=== PATIENT | male | born 1960 | race Caucasian/White ===

== ENCOUNTER 2016-06-09 20:30 | Inpatient (IN) | payer OTHER ==
[~2016-06-09] VITALS: Ht 182.9 cm; Wt 130.7 kg
[~2016-06-09 20:30] MED LIST: ASPI81TA2 PO; ATOR10TA84 PO; GABA-531 PO; GEMF600T3 PO; INSLAN SQ; INSU100C3 SQ
[2016-06-09] MEDS ORDERED: IPRATROPIUM BROMIDE 0.5 MG/2.5 ML NEB SOLUTION NEB ONE (20:45)
[2016-06-09] MEDS ORDERED: ALBUTEROL SULFATE 5 MG/ML 20 ML NEB SOLN [BULK] NEB ONE (20:45)
[2016-06-09 20:50] LABS: GLUCOSE,POINT OF CARE 224 MG/DL (70-110)
[2016-06-09] MEDS ORDERED: METF500T4 PO (21:14)
[2016-06-09] MEDS ORDERED: LISI-661 PO (21:14)
[2016-06-09 21:20] LABS: BASOPHILS # (AUTO) 0.02 K/uL (0.00-0.20); BASOPHILS % (AUTO) 0.4 % (0.0-2.0); EOSINOPHILS # (AUTO) 0.14 K/uL (0.00-0.70); EOSINOPHILS % (AUTO) 2.25 % (1.0-6.0); HEMATOCRIT 37.4 % (41-53); HEMOGLOBIN 12.2 g/dL (13.5-17.5); LYMPHOCYTES # (AUTO) 1.4 K/uL (1.0-4.8); LYMPHOCYTES % (AUTO) 23.9 % (22.0-44.0); MEAN CORPUSCULAR HEMOGLOBIN 29.1 pg (26.0-34.0); MEAN CORPUSCULAR HGB CONC 32.6 G/dL (31.0-37.0); MEAN CORPUSCULAR VOLUME 89 fL (80-100); MONOCYTES # (AUTO) 0.5 K/uL (0.1-1.0); MONOCYTES % (AUTO) 7.5 % (2.0-9.0); NEUTROPHILS % (AUTO) 65.9 % (40.0-70.0); PLATELET COUNT (AUTO) 181 K/uL (150-450); RED CELL DISTRIBUTION WIDTH 15.8 % (11.5-14.5)
[2016-06-09 21:31] LABS: ANION GAP 6 mmol/L (8-16); CALCIUM, TOTAL 8.4 mg/dL (8.8-10.5); CARBON DIOXIDE 30 mmol/L (22-29); CHLORIDE 101 mmol/L (98-107); CREATININE 1.12 mg/dL (0.60-1.30); GLOMERULAR FILTR. RATE CALC > 60 mL/min (>60); POTASSIUM 4.1 mmol/L (3.5-5.1); SODIUM SERUM 137 mmol/L (136-145); UREA NITROGEN, BLOOD 14 mg/dL (7-18)
[2016-06-09 21:38] LABS: ALANINE AMINOTRANSFERASE 45 U/L (12-78); ALBUMIN 2.6 g/dL (3.4-5.0); ASPARTATE AMINOTRANSFERASE 23 U/L (15-37); BILIRUBIN,TOTAL 1.1 mg/dL (0.1-1.0); TOTAL PROTEIN, SERUM 6.5 g/dL (6.4-8.2)
[2016-06-09 21:50] LABS: B-TYPE NATRIURETIC PEPTIDE 202 pg/mL (0-100)
[2016-06-09 22:14] LABS: INFLUENZA TYPE B NEGATIVE FOR TYPE B (NEGATIVE)
[2016-06-09] MEDS ORDERED: NITROGLYCERIN 2% (1 GM=INCH) PACKET TP ONE (22:15)
[2016-06-09] MEDS ORDERED: BISACODYL 10 MG RECTAL RECTAL SUPPOSITORY PR PRN (22:15)
[2016-06-09] MEDS ORDERED: MAGNESIUM HYDROXIDE SUSPENSION 30 ML UDCUP PO PRN (22:15)
[2016-06-09] MEDS ORDERED: OxyCODONE HCL/ACETAMINOPHEN 5-325 MG TABLET PO PRN (22:15)
[2016-06-09] MEDS ORDERED: FUROSEMIDE 40 MG/4 ML VIAL IVP ONE (22:15)
[2016-06-09] MEDS ORDERED: ALBUTEROL SULFATE 2.5 MG/0.5 ML NEB SOLUTION NEB PRN (22:15)
[2016-06-09] MEDS ORDERED: DEXTROSE 50%-WATER 25 GM/50 ML SYRINGE IVP PRN (22:15)
[2016-06-09] MEDS ORDERED: ZOLPIDEM TARTRATE 10 MG TABLET PO PRN (22:15)
[2016-06-09] MEDS ORDERED: ASPIRIN 81 MG CHEWABLE TABLET PO ONE (22:15)
[2016-06-09] MEDS ORDERED: INSULIN ASPART 100 UNITS/ML SQ PRN (22:15)
[2016-06-09] MEDS ORDERED: ONDANSETRON HCL 4 MG/2 ML VIAL IVP PRN (22:15)
[2016-06-09 22:42] LABS: APPEARANCE,URINE CLEAR (CLEAR); GLUCOSE, URINE (UA) >=1000 mg/dL (NEGATIVE); KETONES,URINE NEGATIVE (NEGATIVE); LEUKOCYTE ESTERASE ,URINE NEGATIVE (NEGATIVE); OCCULT BLOOD,URINE SMALL (NEGATIVE); PH,URINE 6.5 (5.0-8.0); PROTEIN,URINE SEE CONFIRM (NEGATIVE)
[2016-06-09 22:43] LABS: ADD UA MICROSCOPIC YES
[2016-06-09 22:46] LABS: SULFOSALICYLIC ACID,URINE 3+ (Negative)
[2016-06-09 22:47] LABS: SQUAMOUS EPITHELIAL CELL,UR Few /LPF (None Seen); WBC,URINE 0-2 /HPF (0-5)
[2016-06-10] MEDS: HEPARIN SODIUM,PORCINE 5,000 UNITS/ML VIAL SQ SCH ×4 (00:05→23:45)
[2016-06-10] MEDS: ALBUTEROL SULFATE 2.5 MG/0.5 ML NEB SOLUTION NEB SCH ×4 (02:51→19:29)
[2016-06-10] MEDS: IPRATROPIUM BROMIDE 0.5 MG/2.5 ML NEB SOLUTION NEB SCH ×4 (02:51→19:29)
[2016-06-10] MEDS: ACETAMINOPHEN 325 MG TABLET PO PRN ×2 (04:55→16:49)
[2016-06-10 05:24] LABS: BASOPHILS % (AUTO) 0.5 % (0.0-2.0); EOSINOPHILS % (AUTO) 1.9 % (1.0-6.0); HEMATOCRIT 37.3 % (41-53); HEMOGLOBIN 12.3 g/dL (13.5-17.5); LYMPHOCYTES # (AUTO) 1.1 K/uL (1.0-4.8); LYMPHOCYTES % (AUTO) 20.7 % (22.0-44.0); MEAN CORPUSCULAR HEMOGLOBIN 29.4 pg (26.0-34.0); MEAN CORPUSCULAR VOLUME 89 fL (80-100); MONOCYTES # (AUTO) 0.4 K/uL (0.1-1.0); NEUTROPHILS # (AUTO) 3.7 K/uL (1.8-7.7); NEUTROPHILS % (AUTO) 69.9 % (40.0-70.0); PLATELET COUNT (AUTO) 178 K/uL (150-450); RED BLOOD CELL COUNT(AUTO) 4.19 MIL/uL (4.50-5.90); RED CELL DISTRIBUTION WIDTH 15.7 % (11.5-14.5); WHITE BLOOD COUNT (AUTO) 5.3 K/uL (4.5-11.0)
[2016-06-10 05:45] LABS: CALCIUM, TOTAL 8.2 mg/dL (8.8-10.5); CREATININE 1.29 mg/dL (0.60-1.30); POTASSIUM 3.9 mmol/L (3.5-5.1)
[2016-06-10 05:49] LABS: HEMOGLOBIN A1C 14.3 % (4.5-6.2)
[2016-06-10 05:50] LABS: ALBUMIN 2.5 g/dL (3.4-5.0); BILIRUBIN,TOTAL 0.9 mg/dL (0.1-1.0); CHOL/HDL RATIO 4.8 (4.2-7.3); TOTAL PROTEIN, SERUM 6.6 g/dL (6.4-8.2)
[2016-06-10 06:11] LABS: THYROID STIMULATING HORMONE 7.29 uIU/mL (0.36-3.74)
[2016-06-10 08:16] LABS: GLUCOSE COMMENT 1 Doctor Notified; GLUCOSE,POINT OF CARE 376 MG/DL (70-110)
[2016-06-10] MEDS: MetFORMIN HCL 500 MG TABLET PO SCH ×2 (08:18→16:49)
[2016-06-10] MEDS: LISINOPRIL 10 MG TABLET PO SCH (09:01)
[2016-06-10] MEDS: INSULIN DETEMIR 100 UNITS/ML SQ SCH ×2 (09:01→20:50)
[2016-06-10] MEDS: PANTOPRAZOLE SODIUM 40 MG DR TABLET PO SCH (09:01)
[2016-06-10 13:56] LABS: GLUCOSE COMMENT 1 Repeated; GLUCOSE,POINT OF CARE 421 MG/DL (70-110)
[2016-06-10] MEDS: INSULIN ASPART 100 UNITS/ML SQ PRN ×3 (14:08→20:51)
[2016-06-10 14:56] LABS: GLUCOSE,POINT OF CARE 414 MG/DL (70-110)
[2016-06-10 15:36] LABS: GLUCOSE,POINT OF CARE 352 MG/DL (70-110)
[2016-06-10 16:07] VITALS: BP 156/89
[2016-06-10 20:10] VITALS: BP 134/85
[2016-06-10 20:26] LABS: GLUCOSE COMMENT 1 Received Meds; GLUCOSE,POINT OF CARE 318 MG/DL (70-110)
[2016-06-10] MEDS ORDERED: GABAPENTIN 400 MG CAPSULE PO SCH (21:00)
[2016-06-10 21:01] LABS: GLUCOSE COMMENT 1 Received Meds; GLUCOSE,POINT OF CARE 271 MG/DL (70-110)
[2016-06-11 00:16] VITALS: BP 150/87
[2016-06-11] MEDS: ALBUTEROL SULFATE 2.5 MG/0.5 ML NEB SOLUTION NEB SCH ×2 (01:44→07:56)
[2016-06-11] MEDS: IPRATROPIUM BROMIDE 0.5 MG/2.5 ML NEB SOLUTION NEB SCH ×2 (01:44→07:55)
[2016-06-11] MEDS: ACETAMINOPHEN 325 MG TABLET PO PRN (04:17)
[2016-06-11 05:30] VITALS: BP 148/85
[2016-06-11] MEDS: INSULIN ASPART 100 UNITS/ML SQ PRN ×2 (06:13→12:21)
[2016-06-11 07:11] VITALS: BP 144/70
[2016-06-11 07:17] VITALS: BP 118/60
[2016-06-11] MEDS: MetFORMIN HCL 500 MG TABLET PO SCH (08:50)
[2016-06-11] MEDS: LISINOPRIL 10 MG TABLET PO SCH (08:50)
[2016-06-11] MEDS: PANTOPRAZOLE SODIUM 40 MG DR TABLET PO SCH (08:50)
[2016-06-11] MEDS: HEPARIN SODIUM,PORCINE 5,000 UNITS/ML VIAL SQ SCH (08:52)
[2016-06-11] MEDS: INSULIN DETEMIR 100 UNITS/ML SQ SCH (08:57)
[2016-06-11 11:08] VITALS: BP 147/83
[2016-06-11] MEDS ORDERED: ASPI-1061 PO (11:16)
[2016-06-11] MEDS ORDERED: SIMV-260 PO (11:18)
[2016-06-12 19:32] LABS: GLUCOSE COMMENT 1 Received Meds; GLUCOSE,POINT OF CARE 233 MG/DL (70-110)
[2016-06-12 19:32] LABS: GLUCOSE COMMENT 1 Received Meds; GLUCOSE,POINT OF CARE 209 MG/DL (70-110)
== END 2016-06-11 13:15 | disposition home or self-care (01) | DRG 194 ==
LOC: EMS 20:31 → 5S 06-10 13:39
PROVIDERS: ADMIT Hospitalist; ATTEND Hospitalist
DX: I11.0 Hypertensive heart disease with heart failure (principal); E11.65 Type 2 diabetes mellitus with hyperglycemia; E07.9 Disorder of thyroid, unspecified; E78.00 Pure hypercholesterolemia, unspecified; D64.9 Anemia, unspecified; I50.31 Acute diastolic (congestive) heart failure; E66.9 Obesity, unspecified; E78.5 Hyperlipidemia, unspecified; J40 Bronchitis, not specified as acute or chronic; Z79.899 Other long term (current) drug therapy; Z79.4 Long term (current) use of insulin; Z79.82 Long term (current) use of aspirin
CPT/HCPCS: 82306; 82607; 82746; 82962; 83036; 83540; 83550; 84443; 87040; 87804; 93005; 93306; 94640; 94644; 96374; 99285; J1644; J1815; J1940

== ENCOUNTER 2016-10-18 11:11 | Inpatient (IN) | payer OTHER ==
[~2016-10-18] VITALS: Ht 182.9 cm; Wt 124.6 kg
[2016-10-18] VITALS (7 sets, daily range): BP systolic 137–158; BP diastolic 86–101
[~2016-10-18 11:11] MED LIST changes: +ASPI-1061 PO; -ASPI81TA2 PO; -ATOR10TA84 PO; -GEMF600T3 PO; +LISI-661 PO; +METF500T4 PO; +SIMV-260 PO
[2016-10-18 11:32] LABS: GLUCOSE,POINT OF CARE 288 MG/DL (70-110)
[2016-10-18] MEDS ORDERED: ONDANSETRON HCL 4 MG/2 ML VIAL IVP ONE (11:45)
[2016-10-18] MEDS ORDERED: LISINOPRIL 10 MG TABLET PO ONE (11:45)
[2016-10-18] MEDS ORDERED: MORPHINE SULFATE 4 MG/ML SYRINGE IVP ONE (11:45)
[2016-10-18] MEDS ORDERED: ALBUTEROL SULFATE 2.5 MG/0.5 ML NEB SOLUTION NEB ONE (11:45)
[2016-10-18] MEDS ORDERED: IPRATROPIUM BROMIDE 0.5 MG/2.5 ML NEB SOLUTION NEB ONE (11:45)
[2016-10-18] MEDS ORDERED: ASPIRIN 81 MG CHEWABLE TABLET PO ONE (11:45)
[2016-10-18 11:59] LABS: BASOPHILS % (AUTO) 0.5 % (0.0-2.0); HEMATOCRIT 48.4 % (41-53); HEMOGLOBIN 15.2 g/dL (13.5-17.5); LYMPHOCYTES # (AUTO) 0.9 K/uL (1.0-4.8); LYMPHOCYTES % (AUTO) 17.4 % (22.0-44.0); MEAN CORPUSCULAR HEMOGLOBIN 25.7 pg (26.0-34.0); MEAN CORPUSCULAR HGB CONC 31.4 G/dL (31.0-37.0); MEAN CORPUSCULAR VOLUME 82 fL (80-100); MONOCYTES # (AUTO) 0.3 K/uL (0.1-1.0); MONOCYTES % (AUTO) 6.1 % (2.0-9.0); NEUTROPHILS # (AUTO) 3.8 K/uL (1.8-7.7); PLATELET COUNT (AUTO) 144 K/uL (150-450); RED BLOOD CELL COUNT(AUTO) 5.91 MIL/uL (4.50-5.90); RED CELL DISTRIBUTION WIDTH 17.9 % (11.5-14.5); WHITE BLOOD COUNT (AUTO) 5.1 K/uL (4.5-11.0)
[2016-10-18 12:08] LABS: ANION GAP 3 mmol/L (8-16); CARBON DIOXIDE 30 mmol/L (22-29); CHLORIDE 99 mmol/L (98-107); CREATININE 1.33 mg/dL (0.60-1.30); GLOMERULAR FILTR. RATE CALC 55 mL/min (>60); POTASSIUM 4.4 mmol/L (3.5-5.1); SODIUM SERUM 132 mmol/L (136-145); UREA NITROGEN, BLOOD 13 mg/dL (7-18)
[2016-10-18 12:13] LABS: RBC MORPHOLOGY COMMENT ABNORMAL RBC MORPH
[2016-10-18] MEDS ORDERED: HEPARIN SODIUM 25000 UNITS/D5W 250 ML IV PRN (12:27)
[2016-10-18] MEDS ORDERED: INSULIN REGULAR, HUMAN 100 UNITS/ML SQ ONE (12:30)
[2016-10-18] MEDS ORDERED: HEPARIN SODIUM,PORCINE 5,000 UNITS/ML VIAL IVP ONE (12:30)
[2016-10-18] MEDS ORDERED: MetFORMIN HCL 500 MG TABLET PO ONE (12:30)
[2016-10-18] MEDS ORDERED: HEPARIN SODIUM,PORCINE 5,000 UNITS/ML VIAL IVP PRN ×2 (12:30)
[2016-10-18] MEDS ORDERED: SIMVASTATIN 20 MG TABLET PO ONE (12:30)
[2016-10-18] MEDS ORDERED: NITROGLYCERIN 50 MG/D5% WATER 250 ML IV PRN (12:31)
[2016-10-18 12:33] LABS: ALANINE AMINOTRANSFERASE 32 U/L (12-78); ALBUMIN 2.6 g/dL (3.4-5.0); ASPARTATE AMINOTRANSFERASE 22 U/L (15-37); BILIRUBIN,TOTAL 1.1 mg/dL (0.1-1.0); CREATINE KINASE MB 3.6 ng/mL (0-5); CREATINE KINASE, TOTAL 295 U/L (39-308); TOTAL PROTEIN, SERUM 6.4 g/dL (6.4-8.2)
[2016-10-18 12:40] LABS: B-TYPE NATRIURETIC PEPTIDE 88 pg/mL (0-100)
[2016-10-18 13:01] LABS: PROTHROMBIN TIME 10.8 SEC (9.4-11.6)
[2016-10-18 13:11] LABS: ERYTHROCYTE SEDIMENTATION RATE 12 MM/HR (0-15)
[2016-10-18] MEDS ORDERED: ONDANSETRON HCL 4 MG/2 ML VIAL IVP PRN ×2 (13:45→22:15)
[2016-10-18] MEDS ORDERED: 0.9% SODIUM CHLORIDE 10 ML SYRINGE IVP PRN (13:45)
[2016-10-18] MEDS ORDERED: ACETAMINOPHEN 325 MG TABLET PO PRN (13:45)
[2016-10-18 14:02] LABS: GLUCOSE,POINT OF CARE 303 MG/DL (70-110)
[2016-10-18 14:25] LABS: ABG A-A DIFF O2 103.6 mmHg (10-20.0); ABG BASE EXCESS -0.1 mmol/L (-2.0-3.0); ABG HCO3 24.2 mmol/L (22.0-26.0); ABG PCO2 43 mmHg (35-45); ABG PH 7.386 (7.35-7.450); ALLEN TEST, BLOOD GAS Positive; TEMPERATURE, FAHRENHEIT, BG 98.2 FAHREN (96.0-98.6)
[2016-10-18 14:39] LABS: APPEARANCE,URINE CLEAR (CLEAR); GLUCOSE, URINE (UA) >=1000 mg/dL (NEGATIVE); KETONES,URINE NEGATIVE (NEGATIVE); LEUKOCYTE ESTERASE ,URINE NEGATIVE (NEGATIVE); PH,URINE 6.5 (5.0-8.0); PROTEIN,URINE SEE CONFIRM (NEGATIVE)
[2016-10-18 14:45] LABS: ADD UA MICROSCOPIC YES; OCCULT BLOOD,URINE SMALL (NEGATIVE)
[2016-10-18 14:46] LABS: RBC,URINE 0-2 /HPF (0-2); SULFOSALICYLIC ACID,URINE 1+ (Negative); WBC,URINE 0-2 /HPF (0-5)
[2016-10-18 16:47] LABS: GLUCOSE,POINT OF CARE 274 MG/DL (70-110)
[2016-10-18] MEDS: ACETAMINOPHEN 325 MG TABLET PO PRN (21:10)
[2016-10-18] MEDS ORDERED: ZOLPIDEM TARTRATE 10 MG TABLET PO PRN (22:15)
[2016-10-18] MEDS ORDERED: MAGNESIUM HYDROXIDE SUSPENSION 30 ML UDCUP PO PRN (22:15)
[2016-10-18] MEDS ORDERED: DEXTROSE 50%-WATER 25 GM/50 ML SYRINGE IVP PRN (22:15)
[2016-10-18] MEDS ORDERED: HYDROCODONE/ACETAMINOPHEN 5-325 MG TABLET PO PRN (22:15)
[2016-10-18] MEDS: MORPHINE SULFATE 2 MG/ML SYRINGE IVP PRN (22:41)
[2016-10-18] MEDS: INSULIN DETEMIR 100 UNITS/ML SQ SCH (22:49)
[2016-10-18] MEDS ORDERED: LISINOPRIL 20 MG TABLET PO ONE (23:30)
[2016-10-19] VITALS (10 sets, daily range): BP systolic 131–171; BP diastolic 76–101
[2016-10-19] MEDS: MORPHINE SULFATE 2 MG/ML SYRINGE IVP PRN ×5 (04:09→23:46)
[2016-10-19] MEDS: INSULIN ASPART 100 UNITS/ML SQ PRN ×3 (05:48→21:27)
[2016-10-19] MEDS: HydrALAZINE HCL 20 MG/ML VIAL IVP PRN ×2 (05:53→20:03)
[2016-10-19 06:03] LABS: CHOL/HDL RATIO 4.7 (4.2-7.3)
[2016-10-19 06:07] LABS: BASOPHILS % (AUTO) 0.4 % (0.0-2.0); EOSINOPHILS % (AUTO) 0.9 % (1.0-6.0); HEMATOCRIT 47.6 % (41-53); HEMOGLOBIN 14.9 g/dL (13.5-17.5); LYMPHOCYTES % (AUTO) 17.9 % (22.0-44.0); MEAN CORPUSCULAR HGB CONC 31.4 G/dL (31.0-37.0); MEAN CORPUSCULAR VOLUME 83 fL (80-100); MONOCYTES # (AUTO) 0.5 K/uL (0.1-1.0); MONOCYTES % (AUTO) 9.5 % (2.0-9.0); NEUTROPHILS % (AUTO) 71.3 % (40.0-70.0); PLATELET COUNT (AUTO) 135 K/uL (150-450); RED BLOOD CELL COUNT(AUTO) 5.76 MIL/uL (4.50-5.90); RED CELL DISTRIBUTION WIDTH 18.5 % (11.5-14.5); WHITE BLOOD COUNT (AUTO) 5.6 K/uL (4.5-11.0)
[2016-10-19 08:01] LABS: GLUCOSE,POINT OF CARE 266 MG/DL (70-110)
[2016-10-19 08:02] LABS: GLUCOSE,POINT OF CARE 284 MG/DL (70-110)
[2016-10-19 08:35] LABS: RBC MORPHOLOGY COMMENT ABNORMAL RBC MORPH
[2016-10-19] MEDS ORDERED: LISINOPRIL 10 MG TABLET PO SCH (09:00)
[2016-10-19] MEDS: DOCUSATE SODIUM 100 MG CAPSULE PO SCH ×2 (09:27→20:24)
[2016-10-19] MEDS: ASPIRIN 81 MG CHEWABLE TABLET PO SCH (09:27)
[2016-10-19] MEDS: LISINOPRIL 20 MG TABLET PO SCH (09:27)
[2016-10-19] MEDS: PANTOPRAZOLE SODIUM 40 MG/VIAL IVP SCH (09:32)
[2016-10-19 17:41] LABS: GLUCOSE,POINT OF CARE 215 MG/DL (70-110)
[2016-10-19 17:41] LABS: GLUCOSE,POINT OF CARE 215 MG/DL (70-110)
[2016-10-19 17:42] LABS: GLUCOSE,POINT OF CARE 230 MG/DL (70-110)
[2016-10-19 18:21] LABS: BASOPHILS % (AUTO) 0.3 % (0.0-2.0); EOSINOPHILS % (AUTO) 0.3 % (1.0-6.0); HEMATOCRIT 49.5 % (41-53); HEMOGLOBIN 15.5 g/dL (13.5-17.5); LYMPHOCYTES # (AUTO) 1.3 K/uL (1.0-4.8); LYMPHOCYTES % (AUTO) 16.9 % (22.0-44.0); MEAN CORPUSCULAR HEMOGLOBIN 25.7 pg (26.0-34.0); MEAN CORPUSCULAR HGB CONC 31.3 G/dL (31.0-37.0); MEAN CORPUSCULAR VOLUME 82 fL (80-100); MONOCYTES # (AUTO) 0.3 K/uL (0.1-1.0); MONOCYTES % (AUTO) 3.6 % (2.0-9.0); NEUTROPHILS # (AUTO) 6.1 K/uL (1.8-7.7); NEUTROPHILS % (AUTO) 78.9 % (40.0-70.0); PLATELET COUNT (AUTO) 133 K/uL (150-450); RED BLOOD CELL COUNT(AUTO) 6.02 MIL/uL (4.50-5.90); RED CELL DISTRIBUTION WIDTH 18.7 % (11.5-14.5); WHITE BLOOD COUNT (AUTO) 7.7 K/uL (4.5-11.0)
[2016-10-19 18:29] LABS: CALCIUM, TOTAL 7.6 mg/dL (8.8-10.5); CREATININE 1.71 mg/dL (0.60-1.30); POTASSIUM 4.3 mmol/L (3.5-5.1)
[2016-10-19 18:34] LABS: ALBUMIN 2.5 g/dL (3.4-5.0); BILIRUBIN,TOTAL 1.3 mg/dL (0.1-1.0); TOTAL PROTEIN, SERUM 6.5 g/dL (6.4-8.2)
[2016-10-19] MEDS ORDERED: FUROSEMIDE 40 MG/4 ML VIAL IVP ONE (18:45)
[2016-10-19 19:06] LABS: RBC MORPHOLOGY COMMENT ABNORMAL RBC MORPH
[2016-10-19] MEDS: ACETAMINOPHEN 325 MG TABLET PO PRN (20:24)
[2016-10-19] MEDS: INSULIN DETEMIR 100 UNITS/ML SQ SCH (21:26)
[2016-10-19] MEDS: ZOLPIDEM TARTRATE 5 MG TABLET PO PRN (21:48)
[2016-10-19 22:06] LABS: APPEARANCE,URINE CLEAR (CLEAR); GLUCOSE, URINE (UA) >=1000 mg/dL (NEGATIVE); KETONES,URINE NEGATIVE (NEGATIVE); LEUKOCYTE ESTERASE ,URINE NEGATIVE (NEGATIVE); OCCULT BLOOD,URINE MODERATE (NEGATIVE); PH,URINE 5.5 (5.0-8.0); PROTEIN,URINE SEE CONFIRM (NEGATIVE)
[2016-10-19 22:11] LABS: ADD UA MICROSCOPIC YES
[2016-10-19 22:18] LABS: SULFOSALICYLIC ACID,URINE 3+ (Negative)
[2016-10-19 22:19] LABS: FINE GRANULAR CASTS,URINE 0-2 /LPF (None Seen); WBC,URINE 0-2 /HPF (0-5)
[2016-10-20] VITALS (8 sets, daily range): BP systolic 115–157; BP diastolic 68–95
[2016-10-20] MEDS: HydrALAZINE HCL 20 MG/ML VIAL IVP PRN (03:02)
[2016-10-20] MEDS: INSULIN ASPART 100 UNITS/ML SQ PRN ×4 (05:28→21:08)
[2016-10-20 05:56] LABS: BASOPHILS % (AUTO) 0.2 % (0.0-2.0); EOSINOPHILS % (AUTO) 0.2 % (1.0-6.0); HEMATOCRIT 48.1 % (41-53); LYMPHOCYTES # (AUTO) 1.2 K/uL (1.0-4.8); LYMPHOCYTES % (AUTO) 12.7 % (22.0-44.0); MEAN CORPUSCULAR HEMOGLOBIN 25.8 pg (26.0-34.0); MEAN CORPUSCULAR HGB CONC 31.2 G/dL (31.0-37.0); MEAN CORPUSCULAR VOLUME 83 fL (80-100); MONOCYTES # (AUTO) 0.7 K/uL (0.1-1.0); MONOCYTES % (AUTO) 7.3 % (2.0-9.0); NEUTROPHILS # (AUTO) 7.6 K/uL (1.8-7.7); NEUTROPHILS % (AUTO) 79.6 % (40.0-70.0); PLATELET COUNT (AUTO) 128 K/uL (150-450); RED BLOOD CELL COUNT(AUTO) 5.82 MIL/uL (4.50-5.90); RED CELL DISTRIBUTION WIDTH 19.1 % (11.5-14.5); WHITE BLOOD COUNT (AUTO) 9.6 K/uL (4.5-11.0)
[2016-10-20 06:15] LABS: ALBUMIN 2.3 g/dL (3.4-5.0); BILIRUBIN,TOTAL 1.1 mg/dL (0.1-1.0); CALCIUM, TOTAL 7.4 mg/dL (8.8-10.5); CREATININE 1.59 mg/dL (0.60-1.30); POTASSIUM 3.9 mmol/L (3.5-5.1); TOTAL PROTEIN, SERUM 6.4 g/dL (6.4-8.2)
[2016-10-20 09:32] LABS: RBC MORPHOLOGY COMMENT ABNORMAL RBC MORPH
[2016-10-20 09:47] LABS: GLUCOSE COMMENT 1 Received Meds; GLUCOSE,POINT OF CARE 255 MG/DL (70-110)
[2016-10-20 09:51] LABS: GLUCOSE COMMENT 1 Received Meds; GLUCOSE,POINT OF CARE 218 MG/DL (70-110)
[2016-10-20] MEDS: LISINOPRIL 20 MG TABLET PO SCH (10:13)
[2016-10-20] MEDS: PANTOPRAZOLE SODIUM 40 MG/VIAL IVP SCH (10:13)
[2016-10-20] MEDS: DOCUSATE SODIUM 100 MG CAPSULE PO SCH ×2 (10:14→21:00)
[2016-10-20] MEDS: ASPIRIN 81 MG CHEWABLE TABLET PO SCH (10:14)
[2016-10-20] MEDS: INSULIN DETEMIR 100 UNITS/ML SQ SCH ×2 (10:16→21:07)
[2016-10-20] MEDS: FUROSEMIDE 40 MG/4 ML VIAL IVP SCH (10:18)
[2016-10-20] MEDS: MORPHINE SULFATE 2 MG/ML SYRINGE IVP PRN (10:18)
[2016-10-20] MEDS: IPRATROPIUM BROMIDE 0.5 MG/2.5 ML NEB SOLUTION NEB PRN ×2 (14:56→22:16)
[2016-10-20] MEDS: MethylPREDNISolone SOD SUCC 125 MG/2 ML VIAL IVP SCH ×2 (18:23→23:48)
[2016-10-20 19:16] LABS: GLUCOSE,POINT OF CARE 224 MG/DL (70-110)
[2016-10-20 19:22] LABS: GLUCOSE,POINT OF CARE 253 MG/DL (70-110)
[2016-10-20] MEDS: ZOLPIDEM TARTRATE 5 MG TABLET PO PRN (20:55)
[2016-10-21 04:53] VITALS: BP 141/78
[2016-10-21] MEDS: MethylPREDNISolone SOD SUCC 125 MG/2 ML VIAL IVP SCH ×2 (05:32→11:05)
[2016-10-21] MEDS: INSULIN ASPART 100 UNITS/ML SQ PRN ×2 (05:34→11:10)
[2016-10-21 06:45] LABS: BASOPHILS % (AUTO) 0.3 % (0.0-2.0); EOSINOPHILS % (AUTO) 0.1 % (1.0-6.0); HEMOGLOBIN 14.8 g/dL (13.5-17.5); LYMPHOCYTES # (AUTO) 0.9 K/uL (1.0-4.8); LYMPHOCYTES % (AUTO) 13.2 % (22.0-44.0); MEAN CORPUSCULAR HGB CONC 31.5 G/dL (31.0-37.0); MEAN CORPUSCULAR VOLUME 83 fL (80-100); MONOCYTES # (AUTO) 0.1 K/uL (0.1-1.0); MONOCYTES % (AUTO) 1.3 % (2.0-9.0); NEUTROPHILS # (AUTO) 5.7 K/uL (1.8-7.7); NEUTROPHILS % (AUTO) 85.1 % (40.0-70.0); PLATELET COUNT (AUTO) 140 K/uL (150-450); RED BLOOD CELL COUNT(AUTO) 5.69 MIL/uL (4.50-5.90); RED CELL DISTRIBUTION WIDTH 18.5 % (11.5-14.5); WHITE BLOOD COUNT (AUTO) 6.7 K/uL (4.5-11.0)
[2016-10-21 07:16] LABS: ALBUMIN 2.1 g/dL (3.4-5.0); BILIRUBIN,TOTAL 0.8 mg/dL (0.1-1.0); CALCIUM, TOTAL 7.9 mg/dL (8.8-10.5); CREATININE 1.57 mg/dL (0.60-1.30); POTASSIUM 4.5 mmol/L (3.5-5.1); TOTAL PROTEIN, SERUM 6.8 g/dL (6.4-8.2)
[2016-10-21 07:55] VITALS: BP 147/72
[2016-10-21] MEDS: PANTOPRAZOLE SODIUM 40 MG/VIAL IVP SCH (07:55)
[2016-10-21] MEDS: FUROSEMIDE 40 MG/4 ML VIAL IVP SCH (07:56)
[2016-10-21] MEDS: ASPIRIN 81 MG CHEWABLE TABLET PO SCH (07:58)
[2016-10-21] MEDS: LISINOPRIL 20 MG TABLET PO SCH (07:59)
[2016-10-21] MEDS: DOCUSATE SODIUM 100 MG CAPSULE PO SCH (07:59)
[2016-10-21] MEDS: INSULIN DETEMIR 100 UNITS/ML SQ SCH (08:04)
[2016-10-21 11:09] VITALS: BP 141/86
[2016-10-21] MEDS ORDERED: INSULIN ASPART 100 UNITS/ML SQ ONE (13:30)
[2016-10-21] MEDS ORDERED: PredniSONE 20 MG TABLET PO ONE (14:00)
[2016-10-21 17:33] LABS: GLUCOSE COMMENT 1 Received Meds; GLUCOSE,POINT OF CARE 203 MG/DL (70-110)
[2016-10-21 19:02] LABS: GLUCOSE COMMENT 1 Received Meds; GLUCOSE,POINT OF CARE 202 MG/DL (70-110)
[2016-10-21 19:36] LABS: GLUCOSE COMMENT 1 Received Meds; GLUCOSE,POINT OF CARE 337 MG/DL (70-110)
[2016-10-21] MEDS ORDERED: INSULIN DETEMIR 100 UNITS/ML SQ SCH (21:00)
[2016-10-22 18:18] LABS: GLUCOSE COMMENT 1 Received Meds; GLUCOSE,POINT OF CARE 404 MG/DL (70-110)
== END 2016-10-21 14:20 | disposition left against medical advice (07) | DRG 133 ==
LOC: EMS 11:14 → ICU 16:16 → 5S 10-20 16:50
PROVIDERS: ADMIT Internal Medicine; ATTEND Hospitalist
DX: J96.01 Acute respiratory failure with hypoxia (principal); E43 Unspecified severe protein-calorie malnutrition; E11.42 Type 2 diabetes mellitus with diabetic polyneuropathy; I50.32 Chronic diastolic (congestive) heart failure; D69.6 Thrombocytopenia, unspecified; E11.65 Type 2 diabetes mellitus with hyperglycemia; K86.1 Other chronic pancreatitis; I10 Essential (primary) hypertension; E78.5 Hyperlipidemia, unspecified; D64.9 Anemia, unspecified; R51 Headache; R07.89 Other chest pain; E78.00 Pure hypercholesterolemia, unspecified; E87.1 Hypo-osmolality and hyponatremia; F15.10 Other stimulant abuse, uncomplicated; E83.51 Hypocalcemia; Z79.82 Long term (current) use of aspirin; Z79.4 Long term (current) use of insulin; Z79.899 Other long term (current) drug therapy; Z82.49 Family history of ischemic heart disease and other diseases of the circulatory system; Z83.3 Family history of diabetes mellitus; Z68.37 Body mass index [BMI] 37.0-37.9, adult
CPT/HCPCS: 70450; 71020; 80307; 82805; 82962; 85651; 87040; 87081; 93005; 93306; 94640; 96365; 96366; 96372; 96375; 99291; C9113; J0360; J1644; J1815; J1940; J2270; J2405; J2930; J3490